=== PATIENT | female | born 1995 | race Caucasian/White ===

== ENCOUNTER 2020-03-09 09:52 | Emergency (ER) | payer SELFPAY ==
[~2020-03-09] VITALS: Ht 165.1 cm; Wt 68.2 kg
[2020-03-09 09:56] VITALS: Ht 165.1 cm; Wt 68.2 kg
[2020-03-09 10:25] LABS: LYMPHOCYTES 19.5 % (15-50); MCH 30.2 pg (26.0-34.0); MCHC 33.3 g/dL (31.0-37.0); MCV 90.7 fL (80.0-100.0); MEAN PLATELET VOLUME 11.2 fL (7.4-10.4); NEUTROPHILS 72.5 % (40-80); PLATELET COUNT 175 10x3/uL (130-400); RBC 4.63 10x6/uL (4.00-5.40); RDW 12.6 % (11.5-14.5); WBC 12.5 10x3/uL (4.8-10.8)
[2020-03-09 10:32] LABS: CALC OSMOLALITY 281 mosm/kg (275-300); CARBON DIOXIDE 25.3 mmol/L (21.0-32.0); CHLORIDE - SERUM 107 mmol/L (98-107); GLUCOSE 93 mg/dL (74-106); POTASSIUM - SERUM 3.6 mmol/L (3.5-5.1); SODIUM 142 mmol/L (136-145); UREA NITROGEN 11 mg/dL (7-18); eGFR NON AFRICAN AMERICAN 73 mL/min (90-120)
[2020-03-09 10:39] LABS: BILIRUBIN NEGATIVE (NEGATIVE); GLUCOSE NEGATIVE (NEGATIVE); KETONE NEGATIVE (NEGATIVE); NITRITE NEGATIVE (NEGATIVE); UROBILINOGEN NORMAL (NORMAL)
[2020-03-09 10:40] LABS: BACTERIA MODERATE /hpf (NEGATIVE); EPITHELIAL CELLS 0-5 /hpf (0-5); RED CELLS - URINE NONE SEEN /hpf (0-5); WHITE CELLS - URINE OCC /hpf (NEGATIVE)
[2020-03-09 10:42] LABS: ALBUMIN 3.9 g/dL (3.4-5.0); ALKALINE PHOSPHATASE 80 U/L (30-120); ALT (SGPT) 18 U/L (10-68); AMYLASE - SERUM 22 U/L (25-115); BILIRUBIN - TOTAL 0.35 mg/dL (0.2-1.3); LIPASE 98 U/L (73-393); PROTEIN - SERUM 6.7 g/dL (6.4-8.2); TROPONIN-I < 0.017 ng/mL (0.000-0.060)
[2020-03-09 10:55] LABS: HCG URINE NEGATIVE (NEGATIVE)
[2020-03-09] MEDS ORDERED: MACROBID100 MG PO (11:31)
[2020-03-09] MEDS ORDERED: PYRIDIUM100 MG PO (11:33)
[2020-03-09] MEDS ORDERED: CIPRO500 MG PO (12:09)
[2020-03-09 13:10] VITALS: BP 112/67
== END 2020-03-09 13:10 | disposition home or self-care (01) ==
LOC: D.ER 09:52
PROVIDERS: Family Medicine
DX: N39.0 Urinary tract infection, site not specified (principal); R10.30 Lower abdominal pain, unspecified